=== PATIENT | female | born 1950 | race Hispanic/Latino ===

== ENCOUNTER 2021-02-11 06:12 | Day surgery (SDC) | payer MEDICARE, OTHER ==
[2021-02-11] MEDS ORDERED: ASPIRIN EC 325 MG TAB PO NR (06:58)
[2021-02-11] MEDS ORDERED: SODIUM CHLORIDE 0.9% 500 ML 500 ML IV SCH (07:00)
[2021-02-11 07:29] LABS: Basophils # (Auto) 0.1 K/mm3 (0.0-0.1); Basophils % (Auto) 0.8 % (0.0-1.8); Eosinophils # (Auto) 0.2 K/mm3 (0.0-0.4); Eosinophils % (Auto) 2.9 % (0.0-4.3); Hematocrit 35.1 % (30.3-42.9); Hemoglobin 12.1 gm/dl (10.1-14.3); Lymphocytes # (Auto) 1.7 K/mm3 (1.2-5.4); Lymphocytes % (Auto) 22.2 % (13.4-35.0); Mean Corpuscular HGB Conc 35 % (30-34); Mean Corpuscular Volume 81 fl (79-97); Monocytes # (Auto) 0.7 K/mm3 (0.0-0.8); Monocytes % (Auto) 9.6 % (0.0-7.3); Platelet Count 308 K/mm3 (140-440); Red Blood Count 4.32 M/mm3 (3.65-5.03); Red Cell Distribution Width 14.5 % (13.2-15.2)
[2021-02-11 07:39] LABS: INR 0.96 (0.87-1.13)
[2021-02-11 07:40] LABS: Partial Thromboplastin Time 29.9 Sec. (24.2-36.6)
[2021-02-11 07:54] LABS: Blood Urea Nitrogen 12 mg/dL (7-17); Calcium 9.4 mg/dL (8.4-10.2); Hemolysis Index 6
[2021-02-11 07:56] LABS: BUN/Creatinine Ratio 20
[2021-02-11] MEDS ORDERED: HEPARIN/NS 5000 UNIT/500ML 1,000 ML IR ONE (07:57)
[2021-02-11] MEDS: fentaNYL 100 MCG/2 ML INJ ONE ×2 (08:36→08:43)
[2021-02-11] MEDS: MIDAZOLAM 2 MG/2 ML INJ ONE ×2 (08:36→08:43)
[2021-02-11] MEDS: HEPARIN 10,000 UNITS/10 ML VIAL ONE ×2 (08:37→08:49)
[2021-02-11] MEDS: VERAPAMIL 5 MG/2 ML INJ ONE ×2 (08:37→08:49)
[2021-02-11] MEDS: LIDOCAINE (2%) 20 MG/1 ML VIAL 20 ML MDV INFILTRATI ONE ×2 (08:37→08:47)
[2021-02-11] MEDS: NITROGLYCERIN SYRINGE 3 ML ONE ×2 (08:38→08:49)
[2021-02-11] MEDS ORDERED: traMADol 50 MG TAB PO PRN (09:16)
[2021-02-11] MEDS ORDERED: HYDROcodone/ACETAMINOPHEN 5-325 MG TAB PO PRN (09:16)
--- NOTE | 2021-02-11 09:16 | Cardiac Catherization Report ---
DATE OF SERVICE: 02/11/2021 LEFT HEART CATHETERIZATION CLINICAL INFORMATION: This is a 70-year-old female with diabetes, hypertension, hyperlipidemia, COPD, who is having persistent shortness of breath with exertion despite negative stress test. Medical therapy is here for left heart catheterization. Procedure was done with moderate sedation started at 8:45, finished at 9:00 a.m., 15 minutes of moderate sedation. DESCRIPTION OF PROCEDURE: Procedure was done via the right radial artery, sterile technique, local anesthesia 6 Pashto radial sheath inserted. Left system engaged with 0.035 catheter. The left main is large and patent, bifurcates into a large LAD that is patent from proximally and distally. Diagonal 1 diagonal 2 moderate tortuosity, small to medium caliber and patent. Circumflex, large caliber vessel, patent and goes into a medium caliber OM1, OM2 that are patent. RCA is a large, dominant vessel, patent from proximally and distally, moderate tortuous. PDA and PLV are small to medium caliber was patent. LV gram done in SAMI and WINN view shows normal LV function. LVEDP at 10 mmHg, LV is 110, aortic is 110/64. No gradient across the valve on pullback. A 5-Pashto catheters all taken over a guidewire, 6 Pashto radial sheath was discontinued. Radial band applied. No hematoma, no bleeding. SUMMARY: 1. Left main patent, LAD patent, circumflex patent, RCA patent, dominant, normal LV function with normal left end-diastolic pressure. 2. Continue risk factor modification. TID: [id number] RECEIPT: [id number] KARLA/MARIO
--- NOTE | 2021-02-11 09:18 | Short Stay Summary ---
Short Stay Documentation Date of service: 02/11/21 - History H&P: obtained from office - Allergies and Medications Current Medications: Allergies tape Allergy (Uncoded 02/11/21 06:57) Swelling Home Medications Medication Instructions Recorded Confirmed Last Taken Type Ascorbic Acid/Ascorbate Sodium 500 mg PO DAILY 02/11/21 02/11/21 02/10/21 History [Vit C-Mayra Hips 500 mg Chew Tb] 500 mg Aspirin EC [Halfprin EC] 81 mg PO DAILY 02/11/21 02/11/21 02/10/21 History 81 mg AtorvaSTATin [Lipitor] 40 mg PO DAILY 02/11/21 02/11/21 02/10/21 History 40 mg Ferrous Sulfate 324 MG 324 mg PO DAILY 02/11/21 02/11/21 02/10/21 History 1 tab Garlic [Odor Free Garlic] 100 mg PO DAILY 02/11/21 02/11/21 02/10/21 History 1 tab Levothyroxine [Synthroid] 112 mcg PO DAILY 02/11/21 02/11/21 02/10/21 History 112 mcg Omeprazole 20 mg PO 3XW 02/11/21 02/11/21 02/09/21 History 20 mg glipiZIDE [Glucotrol] 5 mg PO DAILY 02/11/21 02/11/21 02/10/21 History 5 mg lisinopriL [Lisinopril] 20 mg PO DAILY 02/11/21 02/11/21 02/10/21 History 20 mg Active Medications Sodium Chloride (Nacl 0.9% 500 Ml) 500 mls @ 50 mls/hr IV DIRECT BISHOP Stop: 02/11/21 16:59 Last Admin: 02/11/21 07:37 Dose: 50 mls/hr Documented by: - Brief post op/procedure progress note Date of procedure: 02/11/21 Pre-op diagnosis: sob Post-op diagnosis: same Anesthesia: local Estimated blood loss: minimal Pathology: none - Disposition Condition at discharge: Good Disposition: DC-01 TO HOME OR SELFCARE - Discharge Diagnoses (1) SOB (shortness of breath) on exertion Status: Chronic (2) Hypertension Status: Chronic Qualifiers: Hypertension type: primary hypertension Qualified Code(s): I10 - Essential (primary) hypertension (3) Hyperlipemia, mixed Status: Chronic (4) Diabetes mellitus Status: Chronic Qualifiers: Diabetes mellitus type: type 2 Diabetes mellitus complication status: without complication (5) COPD mixed type Status: Chronic Short Stay Discharge Plan Activity: advance as tolerated Diet: low fat, low cholesterol, low salt, diabetic Wound: keep clean and dry Follow up with: PAYAL ESCAMILLA MD [Primary Care Provider] - 7 Days
--- NOTE | 2021-02-11 10:25 | Electrocardiograph Report ---
[facility] Test Date: 2021-02-11 Test Time: 07:31:06 Pat Name: TRACY PHAN Department: Room: Gender: F [employer]ch[employer]: [employer] : 1950 Requested By: YAN POLLARD Order Number: [id number] Reading MD: Chencho Fowler Measurements Intervals [place] Rate: 62 P: 23 HI: 157 QRS: 50 QRSD: 97 T: 88 QT: 401 QTc: 407 Interpretive Statements Sinus rhythm Nonspecific inferior ST elevation No previous ECG available for comparison Electronically Signed On 02-11-2021 10:25:00 EDT by Chencho Fowler
[2021-02-11 13:10] VITALS: BP 122/67
== END 2021-02-11 14:00 | disposition home or self-care (01) ==
LOC: CATHLABREC 06:12
PROVIDERS: ATTEND Internal Medicine
DX: R06.02 Shortness of breath (principal); E11.9 Type 2 diabetes mellitus without complications; I10 Essential (primary) hypertension; E78.2 Mixed hyperlipidemia; J43.9 Emphysema, unspecified; K21.9 Gastro-esophageal reflux disease without esophagitis; M19.90 Unspecified osteoarthritis, unspecified site; E03.9 Hypothyroidism, unspecified; Z79.899 Other long term (current) drug therapy; Z88.8 Allergy status to other drugs, medicaments and biological substances; Z79.82 Long term (current) use of aspirin; Z87.891 Personal history of nicotine dependence; Z98.890 Other specified postprocedural states; Z86.2 Personal history of diseases of the blood and blood-forming organs and certain disorders involving the immune mechanism; Z82.49 Family history of ischemic heart disease and other diseases of the circulatory system
CPT/HCPCS: 36415; 80048; 85025; 85610; 85730; 93005; 93458; 99156; C1894; J1644; J2250; J3010; J7040; Q9967